=== PATIENT | male | born 2000 | race Caucasian/White ===

== ENCOUNTER 2020-01-23 20:15 | Emergency (ER) | payer OTHER ==
[~2020-01-23] VITALS: Ht 198.1 cm; Wt 106.8 kg
[2020-01-23 20:22] VITALS: BP 144/75; TEMP 98.8
[2020-01-23] MEDS ORDERED: FLEXERIL 1010 MG/TAB PO (21:15)
[2020-01-23] MEDS ORDERED: MOTRIN 800800 MG/TAB PO (21:15)
[2020-01-23 21:50] VITALS: PULSE 76
== END 2020-01-23 21:48 | disposition home or self-care (01) ==
LOC: COL.ER 20:15
DX: S39.012A Strain of muscle, fascia and tendon of lower back, initial encounter (principal); X50.0XXA Overexertion from strenuous movement or load, initial encounter
CPT/HCPCS: J1885

== ENCOUNTER 2021-10-04 06:46 | Emergency (ER) | payer OTHER ==
[~2021-10-04] VITALS: Ht 198.1 cm; Wt 111.4 kg
[~2021-10-04 06:46] MED LIST: FLEXERIL 1010 MG/TAB PO; MOTRIN 800800 MG/TAB PO
[2021-10-04 07:09] VITALS: BP 142/79; TEMP 98.1
[2021-10-04] MEDS ORDERED: PREDNISONE50 MG PO (07:51)
[2021-10-04 08:20] VITALS: PULSE 67
== END 2021-10-04 08:20 | disposition home or self-care (01) ==
LOC: COL.ER 06:46
DX: M54.31 Sciatica, right side (principal)
CPT/HCPCS: J7512